=== PATIENT | female | born 1990 | race Caucasian/White ===

== ENCOUNTER 2016-12-22 14:59 | Emergency (ER) | payer OTHER ==
[~2016-12-22] VITALS: Ht 167.6 cm; Wt 90.0 kg
[2016-12-22 15:13] VITALS: BP 149/72; PULSE 110; RESP 20; O2SAT 100
--- NOTE | 2016-12-22 15:58 | ED.REPORT ---
HPI-Rash / Abscess Date of Service Dec 22, 2016 ED Provider: Doc,Ed MD History of Present Illness: 26-year-old female here for left elbow cellulitis. Onset 5 days ago and worsening since. She was seen at the [facility] on Wednesday started on Bactrim and Keflex. It worsened she went back to the [facility] was started on Augmentin and told to stop the Keflex. They did a culture at this time. it continued to worsen. She is now only taking the Augmentin. Today she had chills. No known fever nausea or other systemic symptoms. Nursing Notes Stated Complaint: STAPH INFECTION Chief Complaint: Skin Rash/Abscess Nursing Notes Reviewed: Yes Allergies: Coded Allergies: hydroxyzine (Verified Allergy, Mild, 12/22/16) Scheduled Clindamycin (Clindamycin) 150 Mg Capsule 450 MG PO TID General Time Seen by MD: 15:43 Chief Complaint Abscess, Red area Hx Obtained From: Patient Arrived By: Walk-in Onset Occurred: 5 days ago Symptom Duration: Constant Location: : Arm Severity: Current: Moderate Severity: Maximum: Moderate Additional Notes: chills Pertinent Negative: Pt denies other symptoms Recent Healthcare: Recent doctor visit Similar Sx Previous: No Past Medical History Past Medical History Notes: denies Review of Systems Constitutional: Denies: Chills Respiratory: Denies: Dyspnea on exertion Cardiovascular: Denies: Chest pain GI: Denies: Nausea Musculoskeletal: Reports: Extremity pain, Extremity swelling, Joint pain, Joint swelling Physical Exam Initial Vital Signs Vital Signs (First) Date Time Temp Pulse Resp B/P Pulse Ox O2 Delivery O2 Flow Rate FiO2 12/22/16 15:13 37 110 20 149/72 100 Room Air Initial VS: Reviewed, Vital signs normal Head / Eyes: Atraumatic, Normocephalic, PERRL Respiratory: Breath sounds normal, Clear to auscultation, No respiratory distress Cardiovascular: Regular rate & rhythm, Heart sounds normal, Intact distal pulses Neurologic: Alert, Oriented, Nonfocal Psychiatric: Mood/affect normal, Behavior normal, Normal thought content General/Constitutional: Awake, Alert, Well appearing Rash / Lesion Notes: Left elbow with significant erythema. Very tender to palpate. Erythema extends down the entire forearm. Palpable or bursitis of the joint. Procedures Procedure Notes: Left elbow aspirate- and anesthisized with a wheal of 1% lidocaine over abscess as indicated by the ultrasound. Proximally 4.5 cc of purulent drainage obtained. Dressing applied. culture obtained Re-Eval/Medical Decision Med Decision/Clinical Course discussed case wtih dr kelsey, add clinda. f/u 1-2 days. Culture from [facility] sensitive to Augmentin, cefazolin, clindamycin, ceftriaxone, levofloxacin, Bactrim and vancomycin. We will add clindamycin to her Augmentin Discharge & Departure Shift Change Sign-Out Laboratory Evaluation: Lab evaluation discussed Response to Therapy: Improved Impression: Primary Impression: Septic bursitis of elbow Laterality: left Qualified Code: M71.122 - Other infective bursitis, left elbow Disposition: Home Discharge Condition All VS Reviewed: Yes Condition: Stable Patient Instructions: Elbow Bursitis (ED) Additional Instructions: Continue your Augmentin. Add Clindamycin as directed. Follow up in 1-2 days for recheck. Return sooner if the erythema extends, your pain worsens or, you gets fevers. Ibuprofen or Tylenol as needed for pain. Referrals: Jona Smallwood MD (PCP) EDSupervising Provider for APC: Rigo Kelsey MD copies to: Rigo Kelsey MD, Linnea K ARNP Dec 22, 2016 15:58
[2016-12-22] MEDS ORDERED: CLIN-77 PO (17:36)
[2016-12-22 17:40] VITALS: BP 114/81; PULSE 72; RESP 16; O2SAT 95
== END 2016-12-22 17:44 | disposition home or self-care (01) ==
LOC: SED 14:59
DX: M71.122 Other infective bursitis, left elbow (principal); Z88.8 Allergy status to other drugs, medicaments and biological substances